=== PATIENT | male | born 1950 | race Two or more races ===

== ENCOUNTER 2018-08-20 13:05 | Inpatient (IN) | payer MEDICARE, MEDICAID ==
[~2018-08-20] VITALS: Ht 165.1 cm; Wt 75.3 kg
[2018-08-20] MEDS ORDERED: SODIUM CHLORIDE FLUSH 10ML SYR IVF ONE (13:30)
--- NOTE | 2018-08-20 13:57 | NUR ---
per patient: feeling weak, nausea, abd pain, "have't eaten in more than a week now" because of inability to care for self. he is so weak that he can't even get out of bed. patient states he moves from one apartment to another and heavily relies on friends to care for him. he has no source of income and means to obtain. patient has a brother, veronika santamaria [phone] who occassionally visits him. his friend, antony [phone] is his current room mate and occassionally helps him with food. when he was discharged from [facility] on amoxicillin and xarelto prescription, he said he finished the antibiotics as prescribed and ran out of xarelto. last xarelto was 3 days ago, 08/17/18. he is unaware of any medical condition and denies of taking medications at home. the only medication he takes at home is ibuprofen.
[2018-08-20 14:01] LABS: BASOPHILS # (AUTO) 0.02 x10^3/uL (0-0.1); BASOPHILS % (AUTO) 0 % (0-1); EOSINOPHILS # (AUTO) 0.28 x10^3/uL (0-0.4); EOSINOPHILS % (AUTO) 6 % (1-7); LYMPHOCYTES # (AUTO) 1.44 x10^3/uL (1-3.4); LYMPHOCYTES % (AUTO) 29 % (22-44); MD NO; MEAN CORPUSCULAR HEMOGLOBIN 33.7 pg (27.5-34.5); MEAN CORPUSCULAR HGB CONC 33.9 g/dL (33.2-36.2); MEAN CORPUSCULAR VOLUME 99.5 fL (81-97); MEAN PLATELET VOLUME 8.2 fL (7.4-10.4); MONOCYTES # (AUTO) 0.15 x10^3/uL (0.2-0.8); MONOCYTES % (AUTO) 3 % (2-9); NEUTROPHILS % (AUTO) 62 % (42-75); PLATELET COUNT 201 x10^3/uL (130-400); RED BLOOD COUNT 3.03 x10^6/uL (4.38-5.82); RED CELL DISTRIBUTION WIDTH 13.9 % (9.4-14.8)
[2018-08-20 14:11] LABS: ALBUMIN 3.1 g/dL (3.4-5.0); ANION GAP 14 mmol/L (5-15); CALCIUM 9.6 mg/dL (8.5-10.1); CHLORIDE 103 mmol/L (98-107)
--- NOTE | 2018-08-20 14:13 | NUR ---
Spoke with antony, roommate, he states his prescription bottle of xarelto is full and untouched. Pt has been progressively weak over the last few days that started last week. max assist to sit, stand, and walk. Pt is estranged from his family and don't want anything to do with him. Christ, his brother lives on [facility] [address] and is reliant on donations. Antony stated pt's blood pressure was 91/65.
[2018-08-20 14:15] LABS: ALANINE AMINOTRANSFERASE 24 U/L (12-78); ALKALINE PHOSPHATASE 76 U/L (45-117); BILIRUBIN,TOTAL 1.8 mg/dL (0.2-1.0); CREATININE 2.29 mg/dL (0.7-1.3); TOTAL PROTEIN 11.2 g/dL (6.4-8.2)
[2018-08-20] MEDS ORDERED: SODIUM CHLORIDE 0.9% 1,000ML IVBOLUS ONE (14:30)
[2018-08-20] MEDS ORDERED: ONDANSETRON 2MG/ML, 2ML IVPush ONE (14:30)
[2018-08-20] MEDS ORDERED: MORPHINE SULFATE 4 MG/ML, 1ML IVPush PRN (14:30)
[2018-08-20] MEDS ORDERED: MORPHINE SULFATE 4 MG/ML, 1ML ONE (14:31)
[2018-08-20 14:32] LABS: INTERNATIONAL NORMALIZED RATIO 1.19 (0.93-1.1)
[2018-08-20] MEDS ORDERED: ONDANSETRON 2MG/ML, 2ML ONE (14:32)
--- NOTE | 2018-08-20 14:38 | NUR ---
US at bedside. medications given.
--- NOTE | 2018-08-20 14:46 | NUR ---
SW updated of this patient.
[2018-08-20 14:49] LABS: PROTHROMBIN TIME 12.4 Seconds (9.6-11.5)
[2018-08-20] MEDS ORDERED: ONDANSETRON 2MG/ML, 2ML IVPush PRN (15:00)
[2018-08-20] MEDS ORDERED: OXYcodone IR 5MG TABLET PO PRN (15:00)
[2018-08-20] MEDS ORDERED: hydrALAzine 20 MG/ML, 1ML IVPush PRN (15:00)
[2018-08-20] MEDS ORDERED: ACETAMINOPHEN 325 MG TABLET PO PRN (15:00)
[2018-08-20] MEDS ORDERED: morphine SULFATE 10 MG/ML, 1ML IVPush PRN (15:00)
--- NOTE | 2018-08-20 15:11 | NUR ---
[facility] REPORT TO OLE
[2018-08-20] MEDS: PLEASE ENTER WEIGHT MC SCH ×2 (15:30→23:12)
[2018-08-20 15:43] LABS: THYROID STIMULATING HORMONE 1.19 mIU/L (0.358-3.740)
[2018-08-20 16:20] VITALS: BP 116/64
[2018-08-20] MEDS: LACTATED RINGERS 1,000 ML IV SCH ×2 (17:41→23:41)
[2018-08-20 20:31] VITALS: BP 142/70
[2018-08-20] MEDS: APIXABAN 5 MG TABLET PO SCH (21:09)
[2018-08-20 22:58] LABS: AMPHETAMINE SCREEN, URINE Negative (Negative); BARBITURATE SCREEN, URINE Negative (Negative); BENZODIAZEPINE SCREEN, URINE Negative (Negative); CANNABINOID SCREEN, URINE Negative (Negative); COCAINE SCREEN, URINE Negative (Negative); METHADONE SCREEN, URINE Negative (Negative); OPIATE SCREEN, URINE Positive (Negative)
[2018-08-20 23:01] LABS: CULTURE INDICATED? YES; MICROSCOPIC INDICATED
[2018-08-21 02:41] VITALS: BP 101/62
[2018-08-21 04:50] LABS: ALBUMIN 2.7 g/dL (3.4-5.0); ANION GAP 6 mmol/L (5-15); CHLORIDE 108 mmol/L (98-107)
[2018-08-21 04:54] LABS: ALANINE AMINOTRANSFERASE 20 U/L (12-78); ALKALINE PHOSPHATASE 65 U/L (45-117); CREATININE 1.96 mg/dL (0.7-1.3)
[2018-08-21 04:57] LABS: BASOPHILS # (AUTO) 0.04 x10^3/uL (0-0.1); BASOPHILS % (AUTO) 1 % (0-1); EOSINOPHILS # (AUTO) 0.24 x10^3/uL (0-0.4); EOSINOPHILS % (AUTO) 7 % (1-7); LYMPHOCYTES # (AUTO) 1.08 x10^3/uL (1-3.4); LYMPHOCYTES % (AUTO) 30 % (22-44); MD NO; MEAN CORPUSCULAR HEMOGLOBIN 33.7 pg (27.5-34.5); MEAN CORPUSCULAR HGB CONC 34.3 g/dL (33.2-36.2); MEAN CORPUSCULAR VOLUME 98.3 fL (81-97); MEAN PLATELET VOLUME 8.4 fL (7.4-10.4); MONOCYTES # (AUTO) 0.22 x10^3/uL (0.2-0.8); MONOCYTES % (AUTO) 6 % (2-9); NEUTROPHILS # (AUTO) 1.99 x10^3/uL (1.8-6.8); NEUTROPHILS % (AUTO) 56 % (42-75); PLATELET COUNT 181 x10^3/uL (130-400); RED BLOOD COUNT 2.75 x10^6/uL (4.38-5.82); RED CELL DISTRIBUTION WIDTH 13.8 % (9.4-14.8)
[2018-08-21] MEDS: LACTATED RINGERS 1,000 ML IV SCH ×2 (06:29→13:20)
[2018-08-21 06:46] VITALS: BP 106/56
[2018-08-21] MEDS: PLEASE ENTER WEIGHT MC SCH (07:30)
[2018-08-21] MEDS: APIXABAN 5 MG TABLET PO SCH ×2 (09:58→20:24)
[2018-08-21 13:59] VITALS: BP 116/65
[2018-08-21] MEDS ORDERED: PHARMACY MAY ADJ FOR RENAL FX MC PRN (19:00)
[2018-08-21] MEDS ORDERED: ERGOCALCIFEROL 50,000 UNIT CAPSULE PO SCH (19:00)
[2018-08-21 19:51] VITALS: BP 122/68
[2018-08-22 01:59] VITALS: BP 117/62
[2018-08-22 05:38] LABS: BASOPHILS # (AUTO) 0.02 x10^3/uL (0-0.1); BASOPHILS % (AUTO) 1 % (0-1); EOSINOPHILS # (AUTO) 0.21 x10^3/uL (0-0.4); EOSINOPHILS % (AUTO) 7 % (1-7); LYMPHOCYTES # (AUTO) 1.31 x10^3/uL (1-3.4); LYMPHOCYTES % (AUTO) 42 % (22-44); MD NO; MEAN CORPUSCULAR HEMOGLOBIN 33.7 pg (27.5-34.5); MEAN CORPUSCULAR HGB CONC 33.7 g/dL (33.2-36.2); MEAN CORPUSCULAR VOLUME 99.9 fL (81-97); MEAN PLATELET VOLUME 8.3 fL (7.4-10.4); MONOCYTES # (AUTO) 0.26 x10^3/uL (0.2-0.8); MONOCYTES % (AUTO) 8 % (2-9); NEUTROPHILS # (AUTO) 1.35 x10^3/uL (1.8-6.8); NEUTROPHILS % (AUTO) 43 % (42-75); PLATELET COUNT 153 x10^3/uL (130-400); RED BLOOD COUNT 2.51 x10^6/uL (4.38-5.82); RED CELL DISTRIBUTION WIDTH 13.9 % (9.4-14.8)
[2018-08-22 05:42] LABS: CHLORIDE 108 mmol/L (98-107)
[2018-08-22 06:05] LABS: % IRON SATURATION 34 % (20-55); ANION GAP 7 mmol/L (5-15); CALCIUM 9.2 mg/dL (8.5-10.1); CREATININE 1.51 mg/dL (0.7-1.3); IRON LEVEL 49 mcg/dL (65-175); TOTAL IRON BINDING CAPACITY 146 mcg/dL (250-450); TRANSFERRIN 110 mg/dL (200-360)
[2018-08-22 08:31] VITALS: BP 124/66
[2018-08-22] MEDS: APIXABAN 5 MG TABLET PO SCH ×2 (08:35→20:49)
[2018-08-22] MEDS ORDERED: LACTATED RINGERS 1,000 ML IV SCH (15:00)
[2018-08-22 16:12] VITALS: BP 117/65
[2018-08-22] MEDS: LACTATED RINGERS 1,000 ML IV SCH (16:48)
[2018-08-22 19:24] VITALS: BP 103/58
[2018-08-23] MEDS: LACTATED RINGERS 1,000 ML IV SCH ×2 (01:44→11:00)
[2018-08-23 03:08] VITALS: BP 108/57
[2018-08-23 05:54] LABS: BASOPHILS # (AUTO) 0.03 x10^3/uL (0-0.1); BASOPHILS % (AUTO) 1 % (0-1); EOSINOPHILS # (AUTO) 0.25 x10^3/uL (0-0.4); EOSINOPHILS % (AUTO) 7 % (1-7); LYMPHOCYTES # (AUTO) 1.46 x10^3/uL (1-3.4); LYMPHOCYTES % (AUTO) 43 % (22-44); MD NO; MEAN CORPUSCULAR HEMOGLOBIN 34.4 pg (27.5-34.5); MEAN CORPUSCULAR HGB CONC 34.9 g/dL (33.2-36.2); MEAN CORPUSCULAR VOLUME 98.6 fL (81-97); MONOCYTES # (AUTO) 0.28 x10^3/uL (0.2-0.8); MONOCYTES % (AUTO) 8 % (2-9); NEUTROPHILS # (AUTO) 1.38 x10^3/uL (1.8-6.8); NEUTROPHILS % (AUTO) 41 % (42-75); PLATELET COUNT 153 x10^3/uL (130-400); RED BLOOD COUNT 2.46 x10^6/uL (4.38-5.82); RED CELL DISTRIBUTION WIDTH 13.6 % (9.4-14.8)
[2018-08-23 06:06] LABS: ANION GAP 6 mmol/L (5-15); CALCIUM 8.6 mg/dL (8.5-10.1); CHLORIDE 103 mmol/L (98-107); CREATININE 1.25 mg/dL (0.7-1.3)
[2018-08-23 08:00] VITALS: BP 115/65
[2018-08-23] MEDS: APIXABAN 5 MG TABLET PO SCH (09:28)
[2018-08-23 10:02] VITALS: BP 110/70
[2018-08-23] MEDS ORDERED: ACET325T14 PO (14:41)
[2018-08-23] MEDS ORDERED: APIX5TAB PO (14:41)
[2018-08-23] MEDS ORDERED: ERGO500017 PO (14:41)
== END 2018-08-23 15:40 | DRG 438 ==
LOC: ED 14:42 → 3NE 14:43 → ED 15:51
PROVIDERS: ADMIT Internal Medicine; ATTEND Internal Medicine
DX: K85.00 Idiopathic acute pancreatitis without necrosis or infection (principal); N17.0 Acute kidney failure with tubular necrosis; E87.1 Hypo-osmolality and hyponatremia; I82.501 Chronic embolism and thrombosis of unspecified deep veins of right lower extremity; N18.9 Chronic kidney disease, unspecified; E55.9 Vitamin D deficiency, unspecified; D50.9 Iron deficiency anemia, unspecified; R62.7 Adult failure to thrive; D63.8 Anemia in other chronic diseases classified elsewhere; F10.10 Alcohol abuse, uncomplicated; D53.9 Nutritional anemia, unspecified; E86.0 Dehydration; K76.0 Fatty (change of) liver, not elsewhere classified; K82.8 Other specified diseases of gallbladder; Z74.01 Bed confinement status; Z79.01 Long term (current) use of anticoagulants; Z82.49 Family history of ischemic heart disease and other diseases of the circulatory system; Z59.0 Homelessness; Z91.19 Patient's noncompliance with other medical treatment and regimen; Z83.3 Family history of diabetes mellitus; Z87.891 Personal history of nicotine dependence
CPT/HCPCS: 36415; 71045; 76700; 80048; 80053; 80307; 81001; 82306; 82550; 82728; 82784; 83540; 83550; 83690; 83735; 83970; 84100; 84155; 84156; 84165; 84443; 84466; 85025; 85610; 85730; 86334; 87086; 93005; 96374; 96375; 96376; G0378; J2405; J7030; J7120